=== PATIENT | female | born 1965 | race Caucasian/White ===

== ENCOUNTER 2022-05-18 17:46 | Emergency (ER) | payer OTHER ==
[~2022-05-18] VITALS: Ht 165.1 cm; Wt 60.3 kg
--- NOTE | 2022-05-18 18:01 | NUR ---
PATIENT [id number] FROM HOME, HOSPICE PT, C/O URINARY RETENTION X1DAY. HOOKED UP TO [facility]. VSS. AWAITING TO BE SEEN BY .
--- NOTE | 2022-05-18 18:30 | NUR ---
INDWELLING MORGAN INSERTED. FLASH OF URINE, 1700ML OUTPUT. UA COLLECTED AND SENT TO LAB
[2022-05-18 20:10] LABS: BILIRUBIN,URINE NEGATIVE (NEGATIVE); COLOR,URINE YELLOW (YELLOW); LEUKOCYTE ESTERASE ,URINE NEGATIVE (NEGATIVE); NITRITE, URINE NEGATIVE (NEGATIVE); PROTEIN,URINE NEGATIVE (NEGATIVE); UGLUCOSE NEGATIVE (NEGATIVE); UROBILINOGEN,URINE 0.2 EU/dL (0.2)
[2022-05-18 20:24] LABS: BACTERIA,URINE None seen /HPF (None Seen); WBC,URINE 0-2 /HPF (0-3)
[2022-05-18] MEDS ORDERED: LORAZEPAM INJ 2 MG/ML VIAL IV ONE (20:30)
[2022-05-18] MEDS ORDERED: LORAZEPAM INJ 2 MG/ML VIAL ONE (20:30)
--- NOTE | 2022-05-18 21:24 | NUR ---
PT WILL BE TRANSPORTED BACK FOR HOSPICE VIA [facility] IN APPROX 60 MINS.
--- NOTE | 2022-05-18 21:26 | NUR ---
[facility] TRANSPORT ARRANGED FOR PATIENT TO GO BACK HOME. AND SON AT BEDSIDE.
--- NOTE | 2022-05-18 21:26 | NUR ---
Patient discharged to home in stable condition. Written and verbal after care instructions given. Patient verbalizes understanding of instruction.
[2022-05-18 21:27] VITALS: BP 142/98
--- NOTE | 2022-05-18 21:28 | NUR ---
EDUCATION DONE TO ON HOW TO TAKE CARE OF IFC AT HOME.
--- NOTE | 2022-05-18 22:20 | NUR ---
REPORT GIVEN TO LUIS HERZOG. PATIENT WILL BE GOING STRAIGHT TO HOME ACCOMPANIED BY FAMILY
== END 2022-05-18 22:39 | disposition hospice, home (50) ==
LOC: ER 17:50
DX: R33.9 Retention of urine, unspecified (principal); G93.40 Encephalopathy, unspecified; M32.9 Systemic lupus erythematosus, unspecified; Z88.0 Allergy status to penicillin
CPT/HCPCS: 81001; 96374; 99283; J2060